=== PATIENT | male | born 1980 ===

== ENCOUNTER → 2024-08-28 | Outpatient (CLI) | payer OTHER ==
--- NOTE | 2024-08-28 17:59 | PROCEDURE NOTE ---
Procedure Note Providers to CC ~ Interpretation: [place] EEG Note # Demographics Type of EEG Read: - Routine EEG - video Patient Location: Outpatient First Name: MICHAEL Last Name: AURELIA Date of : 1980 Age: 44 Gender: Male Facility: [facility] Time of Initial Page (Acme ): 08/28/2024 11:30 Time of Return Call (Acme Time): 08/28/2024 11:46 # EEG Interpretation Start Time of EEG Read (Acme Time): 08/28/2024 09:20 Stop Time of EEG Read (Acme ): 08/28/2024 09:43 Duration: 0h 23m Technical Details: - The EEG electrodes were placed using the standard International 10-20 system of electrode placement. Video and an accessory EKG lead were used during the course of this study. - This study was recorded using the [employer] EEG software Indication: - seizure # Description Photic Stimulation: Performed Hyperventilation: performed Phases Captured: - awake - drowsy Symmetry: symmetric Posterior Dominant Rhythm: - present, attenuates on eye opening 10 Hz Amplitude: normal Reactivity: yes Variability: yes Continuity: continuous # Abnormalities Stimulation: - photic stimulation does NOT cause abnormalities - hyperventilation does NOT cause abnormalities Epileptiform Abnormalities: - NOT present Focal Slowing: no Seizure: - NOT present # Impression Impression: normal # Clinical Correlation Clinical Correlation: A normal EEG does not exclude nor support the diagnosis of epilepsy. # Demographics First Name: MICHAEL Last Name: AURELIA Facility: [facility] ORIANA IVORY MD August 28, 2024 17:59
== END | disposition home or self-care (01) ==
LOC: RAD 08:54
PROVIDERS: ATTEND Nurse Practitioner Family
DX: F90.1 Attention-deficit hyperactivity disorder, predominantly hyperactive type (principal); R56.9 Unspecified convulsions
CPT/HCPCS: 95816